=== PATIENT | female | born 1965 | race African-American/Black ===

== ENCOUNTER 2021-06-21 05:59 | Inpatient (IN) | payer MEDICAID, OTHER ==
[2021-06-21] VITALS (16 sets, daily range): BP systolic 106–141; BP diastolic 67–83
[~2021-06-21] VITALS: Ht 157.5 cm; Wt 70.0 kg
[~2021-06-21 05:59] MED LIST: ALBU05 IH
[2021-06-21] MEDS ORDERED: MORPHINE SULFATE 4 MG/ML CPJ (NOT FOR IM USE) IV STA (06:23)
[2021-06-21 07:21] LABS: CHLORIDE 111 mEq/L (98-107)
[2021-06-21 07:30] LABS: BASOPHILS % 0.6 % (0.0-2.0); EOSINOPHILS % 1.1 % (0.0-5.0); HEMATOCRIT. 23.6 % (36.0-48.0); HEMOGLOBIN. 7.7 g/dL (12.0-16.0); LYMPHOCYTES % 22.5 % (20.0-50.0); MEAN CORPUSCULAR HEMOGLOBIN 29.2 pg (28.0-32.0); MEAN CORPUSCULAR VOLUME 89.4 fL (81.0-99.0); MEAN PLATELET VOLUME 8.2 fl (7.4-10.4); MONOCYTES % 6.4 % (2.0-8.0); NEUTROPHILS % 69.4 % (40.0-76.0); PLATELET 305 x1000/uL (130-400); RED BLOOD CELL COUNT 2.64 mill/uL (4.2-5.4); RED CELL DISTRIBUTION WIDTH 18.7 % (11.6-14.6)
[2021-06-21 07:55] LABS: HCG SCREEN NEGATIVE
[2021-06-21 08:35] LABS: CLARITY URINE CLOUDY (CLEAR); COLOR URINE YELLOW (YELLOW); KETONES URINE NEGATIVE (NEGATIVE); LEUKOCYTE ESTERASE URINE TRACE (NEGATIVE); NITRITE URINE NEGATIVE (NEGATIVE); OCCULT BLOOD URINE 3+ (NEGATIVE); PH URINE 5.5 (4.5-8.0); PROTEIN URINE TRACE (NEGATIVE); SPECIFIC GRAVITY URINE 1.014 (1.005-1.030); UROBILINOGEN URINE 0.2 E.U./dL (0.2-1.0)
[2021-06-21] MEDS ORDERED: PANTOPRAZOLE SODIUM 40 MG/VIAL IV SCH (09:00)
[2021-06-21] MEDS ORDERED: DIPHENHYDRAMINE 50MG/ML VIAL IV PRN (09:00)
[2021-06-21] MEDS ORDERED: CLONIDINE 0.1MG TABLET PO PRN (09:00)
[2021-06-21] MEDS ORDERED: IPRATROPIUM/ALBUTEROL 0.5-3(2.5)MG/3ML NEB HHN PRN (09:00)
[2021-06-21] MEDS: SODIUM CHLORIDE 0.9% 1,000 ML IV SCH ×2 (10:19→22:43)
[2021-06-21] MEDS ORDERED: NALOXONE HCL 0.4MG/ML VIAL IV PRN (12:45)
[2021-06-21 13:47] LABS: TOTAL IRON BINDING CAPACITY 298 ug/dL (250-450)
[2021-06-21 14:08] LABS: FERRITIN 13 ng/mL (10-291)
[2021-06-21 14:34] LABS: FOLIC ACID (FOLATE) SERUM >20 ng/mL ng/mL (>5.38)
[2021-06-21 14:48] LABS: VITAMIN B12 SERUM > 2000.0 pg/mL (211-911)
[2021-06-21] MEDS: MORPHINE SULFATE 2 MG/ML CPJ (NOT FOR IM USE) IV PRN (15:17)
[2021-06-21] MEDS: ONDANSETRON HCL 4MG/2ML INJ IV PRN ×2 (15:17→22:57)
[2021-06-21] MEDS: ACETAMINOPHEN 325MG TABLET PO PRN (18:39)
[2021-06-21] MEDS: PANTOPRAZOLE SODIUM 40 MG/VIAL IV SCH (22:42)
[2021-06-21] MEDS: CITALOPRAM HYDROBROMIDE 10MG TABLET PO SCH (22:43)
[2021-06-21] MEDS: LORAZEPAM 1MG TABLET PO SCH (22:43)
[2021-06-21 23:58] LABS: BASOPHILS % 0.6 % (0.0-2.0); EOSINOPHILS % 0.1 % (0.0-5.0); HEMATOCRIT. 26.5 % (36.0-48.0); HEMOGLOBIN. 8.9 g/dL (12.0-16.0); LYMPHOCYTES % 16.9 % (20.0-50.0); MEAN CORPUSCULAR HEMOGLOBIN 29.8 pg (28.0-32.0); MONOCYTES % 6.9 % (2.0-8.0); NEUTROPHILS % 75.5 % (40.0-76.0); PLATELET 210 x1000/uL (130-400); RED BLOOD CELL COUNT 2.98 mill/uL (4.2-5.4); RED CELL DISTRIBUTION WIDTH 17.5 % (11.6-14.6)
[2021-06-22] VITALS (11 sets, daily range): BP systolic 92–138; BP diastolic 61–96
[2021-06-22] MEDS: LEVOTHYROXINE SODIUM 112MCG TABLET PO SCH (06:13)
[2021-06-22 06:15] LABS: BASOPHILS % 0.6 % (0.0-2.0); EOSINOPHILS % 0.8 % (0.0-5.0); HEMATOCRIT. 25.2 % (36.0-48.0); HEMOGLOBIN. 8.3 g/dL (12.0-16.0); LYMPHOCYTES % 20.6 % (20.0-50.0); MEAN CORPUSCULAR HEMOGLOBIN 29.6 pg (28.0-32.0); MEAN PLATELET VOLUME 7.8 fl (7.4-10.4); MONOCYTES % 8.1 % (2.0-8.0); NEUTROPHILS % 69.9 % (40.0-76.0); PLATELET 180 x1000/uL (130-400); RED CELL DISTRIBUTION WIDTH 17.9 % (11.6-14.6)
[2021-06-22] MEDS ORDERED: INSULIN LISPRO 100 UNITS/ML SUBCUT SCH ×2 (06:15→07:20)
[2021-06-22] MEDS ORDERED: DEXTROSE 50% WATER 50ML SYRINGE IV PRN ×2 (06:15)
[2021-06-22] MEDS: BLOOD SUGAR DIAGNOSTIC STRIP TEST SCH ×4 (06:17→21:11)
[2021-06-22] MEDS: INSULIN LISPRO 100 UNITS/ML SUBCUT SCH ×4 (06:17→21:00)
[2021-06-22 06:21] LABS: INR 1.1; PROTHROMBIN TIME 11.4 sec (9.6-11.0)
[2021-06-22 06:23] LABS: CHLORIDE 118 mEq/L (98-107)
[2021-06-22] MEDS: LOSARTAN POTASSIUM 25 MG TABLET PO SCH (09:00)
[2021-06-22] MEDS ORDERED: PANTOPRAZOLE SODIUM 40 MG/VIAL IV SCH (09:00)
[2021-06-22] MEDS: CITALOPRAM HYDROBROMIDE 10MG TABLET PO SCH (09:17)
[2021-06-22] MEDS: CALCITRIOL 0.25MCG CAPSULE PO SCH (09:17)
[2021-06-22] MEDS: ONDANSETRON HCL 4MG/2ML INJ IV PRN ×3 (09:17→23:31)
[2021-06-22] MEDS: PANTOPRAZOLE SODIUM 40 MG/VIAL IV SCH ×2 (09:17→21:21)
[2021-06-22] MEDS: MORPHINE SULFATE 2 MG/ML CPJ (NOT FOR IM USE) IV PRN ×4 (09:18→23:31)
[2021-06-22] MEDS: DEXTROSE 5% WATER 1,000 ML IV SCH ×2 (11:19→23:22)
[2021-06-22] MEDS ORDERED: PROPOFOL 200MG/20ML VIAL IV ONE (11:37)
[2021-06-22] MEDS ORDERED: SIMETHICONE 40 MG/0.6 ML 30ML ONE (11:58)
[2021-06-22] MEDS: ACETAMINOPHEN 650MG/20.3ML UDC PO PRN (14:39)
[2021-06-22 16:49] LABS: CREATINE KINASE 115 IU/L (26-192)
[2021-06-22] MEDS: SUCRALFATE 1 G/10 ML UDC PO SCH ×2 (17:49→21:20)
[2021-06-22] MEDS: LORAZEPAM 1MG TABLET PO SCH (21:21)
[2021-06-23] VITALS (12 sets, daily range): BP systolic 110–153; BP diastolic 75–112
[2021-06-23] MEDS: ACETAMINOPHEN 650MG/20.3ML UDC PO PRN (01:39)
[2021-06-23] MEDS: ONDANSETRON HCL 4MG/2ML INJ IV PRN ×3 (05:47→16:43)
[2021-06-23] MEDS: INSULIN LISPRO 100 UNITS/ML SUBCUT SCH ×4 (05:58→21:00)
[2021-06-23] MEDS: BLOOD SUGAR DIAGNOSTIC STRIP TEST SCH ×4 (05:58→21:00)
[2021-06-23] MEDS: SUCRALFATE 1 G/10 ML UDC PO SCH ×4 (05:58→22:11)
[2021-06-23] MEDS: LEVOTHYROXINE SODIUM 112MCG TABLET PO SCH (05:58)
[2021-06-23 06:38] LABS: BASOPHILS % 0.7 % (0.0-2.0); EOSINOPHILS % 1.7 % (0.0-5.0); HEMATOCRIT. 25.2 % (36.0-48.0); HEMOGLOBIN. 8.6 g/dL (12.0-16.0); LYMPHOCYTES % 19.6 % (20.0-50.0); MEAN CORPUSCULAR HEMOGLOBIN 30.4 pg (28.0-32.0); MEAN CORPUSCULAR VOLUME 88.3 fL (81.0-99.0); MEAN PLATELET VOLUME 7.5 fl (7.4-10.4); MONOCYTES % 5.6 % (2.0-8.0); NEUTROPHILS % 72.4 % (40.0-76.0); PLATELET 190 x1000/uL (130-400); RED BLOOD CELL COUNT 2.85 mill/uL (4.2-5.4); RED CELL DISTRIBUTION WIDTH 17.7 % (11.6-14.6)
[2021-06-23] MEDS ORDERED: POTASSIUM CHLORIDE 20MEQ TABLET SR PO SCH (08:45)
[2021-06-23] MEDS: SODIUM CHLORIDE 0.45% 1,000 ML IV SCH (08:53)
[2021-06-23] MEDS: CITALOPRAM HYDROBROMIDE 10MG TABLET PO SCH (08:54)
[2021-06-23] MEDS: CALCITRIOL 0.25MCG CAPSULE PO SCH (08:54)
[2021-06-23] MEDS: PANTOPRAZOLE SODIUM 40 MG/VIAL IV SCH ×2 (08:54→22:11)
[2021-06-23] MEDS: MORPHINE SULFATE 2 MG/ML CPJ (NOT FOR IM USE) IV PRN (08:55)
[2021-06-23] MEDS: LOSARTAN POTASSIUM 25 MG TABLET PO SCH (09:00)
[2021-06-23] MEDS: METOCLOPRAMIDE HCL 10MG/2ML VIAL IV SCH ×2 (17:16→22:12)
[2021-06-23] MEDS ORDERED: POTASSIUM CHLORIDE 20MEQ/PACKET PO NR (18:00)
[2021-06-23] MEDS: BISACODYL 5MG TABLET PO SCH ×2 (18:10→22:11)
[2021-06-23] MEDS: SORBITOL 70% SOLN 30ML PO SCH ×2 (18:10→22:12)
[2021-06-23] MEDS: LORAZEPAM 1MG TABLET PO SCH (22:15)
[2021-06-23] MEDS: ACETAMINOPHEN 325MG TABLET PO PRN (23:23)
[2021-06-24] VITALS (11 sets, daily range): BP systolic 98–143; BP diastolic 55–99
[2021-06-24 01:27] LABS: T4 FREE 0.65 ng/dL (0.76-1.46)
[2021-06-24] MEDS ORDERED: POTASSIUM CHLORIDE 20MEQ TABLET SR PO NR ×3 (02:00→03:30)
[2021-06-24] MEDS: BISACODYL 5MG TABLET PO SCH ×2 (02:17→06:16)
[2021-06-24] MEDS: METOCLOPRAMIDE HCL 10MG/2ML VIAL IV SCH ×2 (02:17→06:16)
[2021-06-24] MEDS: MORPHINE SULFATE 2 MG/ML CPJ (NOT FOR IM USE) IV PRN ×2 (02:23→20:32)
[2021-06-24] MEDS: SODIUM CHLORIDE 0.45% 1,000 ML IV SCH ×2 (02:34→18:01)
[2021-06-24] MEDS: SORBITOL 70% SOLN 30ML PO SCH ×2 (02:46→08:27)
[2021-06-24] MEDS: SUCRALFATE 1 G/10 ML UDC PO SCH ×4 (06:16→20:27)
[2021-06-24] MEDS: LEVOTHYROXINE SODIUM 112MCG TABLET PO SCH (06:16)
[2021-06-24] MEDS: BLOOD SUGAR DIAGNOSTIC STRIP TEST SCH ×4 (06:34→20:28)
[2021-06-24 07:08] LABS: BASOPHILS % 0.4 % (0.0-2.0); EOSINOPHILS % 0.4 % (0.0-5.0); HEMATOCRIT. 29.6 % (36.0-48.0); HEMOGLOBIN. 10.2 g/dL (12.0-16.0); LYMPHOCYTES % 17.7 % (20.0-50.0); MEAN CORPUSCULAR HEMOGLOBIN 30.4 pg (28.0-32.0); MEAN CORPUSCULAR VOLUME 88.3 fL (81.0-99.0); MEAN PLATELET VOLUME 7.6 fl (7.4-10.4); MONOCYTES % 7.8 % (2.0-8.0); NEUTROPHILS % 73.7 % (40.0-76.0); PLATELET 290 x1000/uL (130-400); RED BLOOD CELL COUNT 3.35 mill/uL (4.2-5.4); RED CELL DISTRIBUTION WIDTH 17.1 % (11.6-14.6)
[2021-06-24] MEDS: INSULIN LISPRO 100 UNITS/ML SUBCUT SCH ×4 (07:20→20:41)
[2021-06-24 07:34] LABS: PROTHROMBIN TIME 10.9 sec (9.6-11.0)
[2021-06-24] MEDS: PANTOPRAZOLE SODIUM 40 MG/VIAL IV SCH ×2 (08:26→20:28)
[2021-06-24] MEDS: CITALOPRAM HYDROBROMIDE 10MG TABLET PO SCH (08:27)
[2021-06-24] MEDS: LOSARTAN POTASSIUM 25 MG TABLET PO SCH (08:27)
[2021-06-24] MEDS: CALCITRIOL 0.25MCG CAPSULE PO SCH (08:27)
[2021-06-24] MEDS ORDERED: DIPHENHYDRAMINE 50MG/ML VIAL IV NR (09:45)
[2021-06-24] MEDS ORDERED: METHYLPREDNISOLONE SOD SUCC 125 MG/2 ML VIAL IV NR (09:45)
[2021-06-24] MEDS ORDERED: PROPOFOL 200MG/20ML VIAL IV ONE (12:57)
[2021-06-24] MEDS ORDERED: LABETALOL 5MG/ML SYR 20 MG/4 ML SYRINGE IV PRN (13:30)
[2021-06-24] MEDS ORDERED: MEPERIDINE HCL/PF 25MG/ML CPJ IV PRN (13:30)
[2021-06-24] MEDS ORDERED: ONDANSETRON HCL 4MG/2ML INJ IV PRN (13:30)
[2021-06-24] MEDS ORDERED: HYDROMORPHONE HCL/PF 2MG/ML CPJ IV PRN (13:30)
[2021-06-24] MEDS ORDERED: DIATR MEGLU/DIATRIZOATE SOLN 30ML PO SCH (14:30)
[2021-06-24] MEDS ORDERED: DIATR MEGLU/DIATRIZOATE SOLN 120ML ONE (19:08)
[2021-06-24] MEDS: LORAZEPAM 1MG TABLET PO SCH (22:34)
[2021-06-25] VITALS (16 sets, daily range): BP systolic 105–155; BP diastolic 58–94
[2021-06-25] MEDS: MORPHINE SULFATE 2 MG/ML CPJ (NOT FOR IM USE) IV PRN ×3 (01:49→23:34)
[2021-06-25] MEDS: ACETAMINOPHEN 325MG TABLET PO PRN (04:12)
[2021-06-25] MEDS: LEVOTHYROXINE SODIUM 112MCG TABLET PO SCH (06:43)
[2021-06-25] MEDS: SUCRALFATE 1 G/10 ML UDC PO SCH ×4 (06:43→20:24)
[2021-06-25] MEDS ORDERED: LEVOFLOXACIN 500MG PREMIX 100 ML IV SCH (07:00)
[2021-06-25 07:01] LABS: HEMATOCRIT. 25.8 % (36.0-48.0); HEMOGLOBIN. 8.8 g/dL (12.0-16.0); MEAN CORPUSCULAR HEMOGLOBIN 30.4 pg (28.0-32.0); MEAN CORPUSCULAR VOLUME 89.3 fL (81.0-99.0); MEAN PLATELET VOLUME 7.8 fl (7.4-10.4); PLATELET 236 x1000/uL (130-400); RED BLOOD CELL COUNT 2.88 mill/uL (4.2-5.4); RED CELL DISTRIBUTION WIDTH 17.6 % (11.6-14.6)
[2021-06-25] MEDS ORDERED: ENALAPRIL 1.25MG/ML VIAL 1ML IV PRN (07:15)
[2021-06-25] MEDS: METRONIDAZOLE 500 MG PREMIX 100 ML IV SCH ×3 (08:27→22:24)
[2021-06-25] MEDS ORDERED: FAMOTIDINE 20MG/2ML VIAL IV SCH (09:00)
[2021-06-25] MEDS ORDERED: LEVOTHYROXINE SODIUM 100 MCG/ VIAL IV SCH ×2 (09:00→15:03)
[2021-06-25] MEDS: LOSARTAN POTASSIUM 25 MG TABLET PO SCH (09:00)
[2021-06-25] MEDS: DEXT 5%/0.45% NACL 1000ML 1,000 ML IV SCH ×2 (09:00→20:32)
[2021-06-25] MEDS: SODIUM CHLORIDE 0.45% 1,000 ML IV SCH (10:45)
[2021-06-25] MEDS: BLOOD SUGAR DIAGNOSTIC STRIP TEST SCH ×3 (11:22→23:56)
[2021-06-25] MEDS: PANTOPRAZOLE SODIUM 40 MG/VIAL IV SCH ×2 (11:22→20:32)
[2021-06-25 11:30] LABS: NUCLEATED RED BLOOD CELLS 1 /100 WBC
[2021-06-25 11:31] LABS: PLATELET ESTIMATE NORMAL
[2021-06-25] MEDS: INSULIN LISPRO 100 UNITS/ML SUBCUT SCH ×3 (11:36→23:56)
[2021-06-25] MEDS: LORAZEPAM 1MG TABLET PO SCH (22:15)
[2021-06-26] VITALS (15 sets, daily range): BP systolic 122–157; BP diastolic 55–99
[2021-06-26] MEDS: ONDANSETRON HCL 4MG/2ML INJ IV PRN (02:54)
[2021-06-26] MEDS: SODIUM CHLORIDE 0.45% 1,000 ML IV SCH (03:25)
[2021-06-26] MEDS: METRONIDAZOLE 500 MG PREMIX 100 ML IV SCH ×3 (05:14→21:31)
[2021-06-26] MEDS: SUCRALFATE 1 G/10 ML UDC PO SCH ×4 (05:53→21:05)
[2021-06-26] MEDS: INSULIN LISPRO 100 UNITS/ML SUBCUT SCH ×3 (06:00→17:45)
[2021-06-26] MEDS: BLOOD SUGAR DIAGNOSTIC STRIP TEST SCH ×3 (06:31→18:00)
[2021-06-26 08:00] LABS: CHLORIDE 110 mEq/L (98-107)
[2021-06-26 08:04] LABS: AMYLASE 117 IU/L (25-115); INR 1.1; PROTHROMBIN TIME 11.7 sec (9.6-11.0)
[2021-06-26] MEDS: LOSARTAN POTASSIUM 25 MG TABLET PO SCH ×2 (08:09→13:30)
[2021-06-26] MEDS: LEVOTHYROXINE SODIUM 100 MCG/ VIAL IV SCH (08:16)
[2021-06-26] MEDS: LEVOFLOXACIN 250MG PREMIX 50 ML IV SCH (08:16)
[2021-06-26] MEDS: PANTOPRAZOLE SODIUM 40 MG/VIAL IV SCH ×2 (08:16→21:05)
[2021-06-26] MEDS: MORPHINE SULFATE 2 MG/ML CPJ (NOT FOR IM USE) IV PRN (08:17)
[2021-06-26] MEDS ORDERED: POTASSIUM CHLORIDE 20MEQ TABLET SR PO NR (09:30)
[2021-06-26 09:43] LABS: HEMATOCRIT. 26.2 % (36.0-48.0); HEMOGLOBIN. 8.8 g/dL (12.0-16.0); MEAN CORPUSCULAR HEMOGLOBIN 29.7 pg (28.0-32.0); PLATELET 244 x1000/uL (130-400); RED BLOOD CELL COUNT 2.95 mill/uL (4.2-5.4); RED CELL DISTRIBUTION WIDTH 17.8 % (11.6-14.6)
[2021-06-26 10:36] LABS: PLATELET ESTIMATE NORMAL
[2021-06-26] MEDS: DEXT 5%/0.45% NACL 1000ML 1,000 ML IV SCH ×2 (11:53→21:30)
[2021-06-26] MEDS: CALCIUM 1250MG TABLET (500MG ELEMENTAL CALCIUM) PO SCH ×3 (13:29→17:45)
[2021-06-26] MEDS: LORAZEPAM 1MG TABLET PO SCH (21:29)
[2021-06-26] MEDS: ACETAMINOPHEN 325MG TABLET PO PRN (21:43)
[2021-06-27] VITALS (8 sets, daily range): BP systolic 106–137; BP diastolic 72–92
[2021-06-27] MEDS: BLOOD SUGAR DIAGNOSTIC STRIP TEST SCH ×3 (00:08→12:39)
[2021-06-27] MEDS: ACETAMINOPHEN 325MG TABLET PO PRN (04:30)
[2021-06-27] MEDS: METRONIDAZOLE 500 MG PREMIX 100 ML IV SCH (05:58)
[2021-06-27] MEDS: SUCRALFATE 1 G/10 ML UDC PO SCH ×2 (05:58→11:50)
[2021-06-27] MEDS: INSULIN LISPRO 100 UNITS/ML SUBCUT SCH ×3 (06:00→12:00)
[2021-06-27 06:20] LABS: BASOPHILS % 0.6 % (0.0-2.0); EOSINOPHILS % 3.9 % (0.0-5.0); HEMATOCRIT. 25.7 % (36.0-48.0); HEMOGLOBIN. 8.8 g/dL (12.0-16.0); LYMPHOCYTES % 21.1 % (20.0-50.0); MEAN CORPUSCULAR VOLUME 87.5 fL (81.0-99.0); MEAN PLATELET VOLUME 7.1 fl (7.4-10.4); MONOCYTES % 9.1 % (2.0-8.0); NEUTROPHILS % 65.3 % (40.0-76.0); PLATELET 253 x1000/uL (130-400); RED BLOOD CELL COUNT 2.94 mill/uL (4.2-5.4); RED CELL DISTRIBUTION WIDTH 17.6 % (11.6-14.6)
[2021-06-27] MEDS ORDERED: POTASSIUM CHLORIDE 20MEQ TABLET SR PO NR (08:15)
[2021-06-27] MEDS: PANTOPRAZOLE SODIUM 40 MG/VIAL IV SCH (09:02)
[2021-06-27] MEDS: CALCIUM 1250MG TABLET (500MG ELEMENTAL CALCIUM) PO SCH (09:02)
[2021-06-27] MEDS: LEVOTHYROXINE SODIUM 100 MCG/ VIAL IV SCH (09:02)
[2021-06-27] MEDS: LEVOFLOXACIN 250MG PREMIX 50 ML IV SCH (09:02)
[2021-06-27] MEDS: LOSARTAN POTASSIUM 25 MG TABLET PO SCH (09:02)
[2021-06-27] MEDS: ACETAMINOPHEN 650MG/20.3ML UDC PO PRN (10:56)
[2021-06-27] MEDS ORDERED: LOSA25TA3 PO (13:04)
[2021-06-27] MEDS ORDERED: SUCR1ORA15 PO (13:04)
[2021-06-27] MEDS ORDERED: CITA10TA16 PO (13:04)
[2021-06-27] MEDS ORDERED: PANT40TA51 MT (13:04)
[2021-06-27] MEDS ORDERED: CALC0.253 PO (13:04)
[2021-06-27] MEDS ORDERED: CALC-26 PO (13:04)
== END 2021-06-27 13:37 | disposition home or self-care (01) | DRG 242 ==
LOC: ER 05:59 → 3WST 08:11 → EDBEDREQSVC 08:17 → EDBEDREQ 08:17 → EDBEDREQTM 08:17 → ENRESERV 10:46
PROVIDERS: ADMIT Internal Medicine; ATTEND Internal Medicine
PROC: 30233N1 Transfusion of Nonautologous Red Blood Cells into Peripheral Vein, Percutaneous Approach (ICD-10-PCS; 2021-06-21)
PROC: 0DB58ZX Excision of Esophagus, Via Natural or Artificial Opening Endoscopic, Diagnostic (ICD-10-PCS; 2021-06-22)
PROC: 0DB78ZX Excision of Stomach, Pylorus, Via Natural or Artificial Opening Endoscopic, Diagnostic (ICD-10-PCS; 2021-06-22)
PROC: 0DB68ZX Excision of Stomach, Via Natural or Artificial Opening Endoscopic, Diagnostic (ICD-10-PCS; 2021-06-22)
PROC: 0DBN8ZZ Excision of Sigmoid Colon, Via Natural or Artificial Opening Endoscopic (ICD-10-PCS; principal; 2021-06-24)
DX: K22.11 Ulcer of esophagus with bleeding (principal); K63.1 Perforation of intestine (nontraumatic); N17.9 Acute kidney failure, unspecified; E83.39 Other disorders of phosphorus metabolism; E87.0 Hyperosmolality and hypernatremia; K92.0 Hematemesis; M32.9 Systemic lupus erythematosus, unspecified; N39.0 Urinary tract infection, site not specified; E87.6 Hypokalemia; E78.5 Hyperlipidemia, unspecified; E88.09 Other disorders of plasma-protein metabolism, not elsewhere classified; I10 Essential (primary) hypertension; J45.909 Unspecified asthma, uncomplicated; Z20.822 Contact with and (suspected) exposure to COVID-19; K44.9 Diaphragmatic hernia without obstruction or gangrene; K63.5 Polyp of colon; D50.0 Iron deficiency anemia secondary to blood loss (chronic); K92.1 Melena; T45.515A Adverse effect of anticoagulants, initial encounter; K29.70 Gastritis, unspecified, without bleeding; M79.7 Fibromyalgia; Z79.01 Long term (current) use of anticoagulants; Z87.891 Personal history of nicotine dependence; Y92.89 Other specified places as the place of occurrence of the external cause; Z98.84 Bariatric surgery status; Z87.898 Personal history of other specified conditions; E86.0 Dehydration; N20.0 Calculus of kidney; E89.0 Postprocedural hypothyroidism
CPT/HCPCS: 36415; 71045; 74018; 74176; 76700; 76770; 80048; 80053; 81003; 82150; 82330; 82550; 82607; 82652; 82728; 82746; 82962; 83036; 83540; 83550; 83605; 83615; 83735; 83970; 84100; 84132; 84145; 84439; 84443; 84703; 85007; 85018; 85025; 85027; 85044; 86850; 86900; 86920; 87426; 88305; 88312; 88313; 93005; 93970; 99291; C9113; J1200; J1815; J1956; J2270; J2405; J2704; J2765; J2930; J3490; J7070; P9016; Q9963